=== PATIENT | female | born 1980 | race Caucasian/White ===

== ENCOUNTER 2021-04-01 10:11 | Emergency (ER) | payer OTHER ==
[~2021-04-01 10:11] MED LIST: ASPIR 8181 MG PO; COREG 3.125M3.125 MG PO; FENOFIBRATE145 MG PO; IMDUR ER TAB 3030 MG PO; LEVEMIR100 UNIT/1 SQ; LIPITOR TAB 2020 MG PO; LISINOPRIL2.5 MG PO; NORCO 5-325 TA1 EACH PO; NORFLEX 100 MG100 MG PO; NOVOLOG 10100 UNITS1 SC; NOVOLOG 10100 UNITS1 SQ; PHENERGAN 12.12.5 M1 PO; PROTONIX40 MG PO
[2021-04-01] MEDS ORDERED: IBUPROFEN600 MG PO (10:56)
== END 2021-04-01 11:37 | disposition home or self-care (01) ==
LOC: ER1 10:11
DX: G56.02 Carpal tunnel syndrome, left upper limb (principal); F17.200 Nicotine dependence, unspecified, uncomplicated; Z90.710 Acquired absence of both cervix and uterus; Z90.49 Acquired absence of other specified parts of digestive tract
CPT/HCPCS: 29125; 99283